=== PATIENT | male | born 1980 | race Caucasian/White ===

== ENCOUNTER 2016-06-01 01:17 | Emergency (ER) | payer SELFPAY ==
[~2016-06-01] VITALS: Ht 180.3 cm; Wt 74.0 kg
[~2016-06-01 01:17] MED LIST: BACT800T5 PO
[2016-06-01 01:25] VITALS: BP 165/97; PULSE 105; RESP 12; TEMP 98; O2SAT 97
[2016-06-01] MEDS ORDERED: BACT800T5 PO (01:32)
--- NOTE | 2016-06-01 01:33 | PD ---
HPI Chief Complaint: Skin Problem Time Seen by Provider: 01:31 Travel History International Travel<30 days: No Contact w/Intl Traveler<30days: No Traveled to known affect area: No History of Present Illness HPI 36-year-old male presents to emergency department for evaluation of an abrasion surrounded by swelling on his anterior left forearm. Patient states he is changing the break in his car today and noticed this this evening. He states it seems to have gotten worse. Denies any pain. No known injury. No recent illnesses, fever, chills. Patient is up-to-date on his tetanus vaccination. He has no other symptoms to report [facility] Past Medical History Medical History: Denies Significant Hx Social History Alcohol Use: Yes (SOCIAL) Tobacco Use: Yes (~2 CIG EVERY OTHER DAY) Substance Use: No Allergies-Medications (Allergen,Severity, Reaction): Coded Allergies: No Known Allergies (Unverified , 06/01/16) Reported Meds & Prescriptions Reported Meds & Active Scripts Active Bactrim DS (Sulfamethoxazole-Trimethoprim) 800-160 Mg Tab 1 Tab PO BID Review of Systems Except as stated in HPI: all other systems reviewed are Neg Physical Exam Narrative GENERAL: Well-nourished, well-developed patient, ambulatory in no acute distress SKIN: Warm and dry. 3 cm abrasion on the left anterior forearm with mild erythema surrounding it. There is a 5 cm diameter area of swelling. There is no induration or fluctuation. Is not tender to palpate. HEAD: Normocephalic. EYES: No scleral icterus. No injection or drainage. NECK: Supple, trachea midline. No JVD or lymphadenopathy. CARDIOVASCULAR: Regular rate and rhythm without murmurs, gallops, or rubs. RESPIRATORY: Breath sounds equal bilaterally. No accessory muscle use. MUSCULOSKELETAL: No cyanosis. Distal pulses are palpable. Cap refills within normal limits. Data Data Last Documented VS Vital Signs Date Time Temp Pulse Resp B/P Pulse Ox O2 Delivery O2 Flow Rate FiO2 06/01/16 02:09 97 06/01/16 01:25 98.0 12 165/97 97 Room Air MDM Medical Decision Making Medical Screen Exam Complete: Yes Emergency Medical Condition: Yes Medical Record Reviewed: Yes Differential Diagnosis Abrasion versus laceration superficial versus deep versus tendon injury versus contusion versus hematoma versus cellulitis versus abscess Narrative Course 36-year-old male presents to the emergency department for evaluation a localized swelling on left anterior forearm. This is surrounding abrasion. There is concern that this may be an early cellulitis. I do not palpate any fluctuation or induration do not believe that it is an abscess. I'll give the patient prescription to start if the area worsens. I have encouraged him to return immediately with any acute worsening of symptoms. Diagnosis Primary Impression: Abrasion of left forearm, initial encounter Additional Impression: Localized soft tissue swelling Referrals: Primary Care Physician Patient Instructions: Acute Wound Care (ED), General Instructions Additional Instructions: Elevate extremity Ice to affected area Tylenol or ibuprofen as needed as directed on the package for pain Return immediately with any acute worsening of symptoms Med/Other Pt SpecificInfo: Prescription(s) given Scripts Sulfamethoxazole-Trimethoprim (Bactrim DS)800-160 Mg Tab1 Tab PO BID #14 TAB Ref 0 Prov:Farhana Gay 06/01/16 Disposition: 01 DISCHARGE HOME Condition: Stable Farhana Gay Jun 01, 2016 01:32
[2016-06-01 02:09] VITALS: PULSE 97
== END 2016-06-01 02:11 | disposition home or self-care (01) ==
LOC: NEPB 01:17
DX: S50.812A Abrasion of left forearm, initial encounter (principal); R22.32 Localized swelling, mass and lump, left upper limb; Z72.0 Tobacco use; X58.XXXA Exposure to other specified factors, initial encounter
CPT/HCPCS: 99283